=== PATIENT | female | born 1960 | race Caucasian/White ===

== ENCOUNTER → 2016-07-04 | Outpatient (CLI) | payer BC ==
[~2016-07-04] MED LIST: LISI-285 PO; METF-312 PO
[2016-07-04 09:15] LABS: Urine RBC None Seen /hpf (0 - 4)
[2016-07-04 09:28] LABS: Basophils # (auto) 0 uL; Basophils % (auto) 0.3 % (0.0-2.0); Eosinophils # (auto) 0.3 uL; Eosinophils % (auto) 4.1 % (0.0-7.0); Hematocrit 42.7 % (36.0-46.0); Hemoglobin 14.3 g/dL (12.2-16.2); Lymphocytes # (auto) 1.7 uL; Lymphocytes % (auto) 21.4 % (10.0-50.0); Mean Corpuscular Hemoglobin 29.2 pg (28.0-32.0); Mean Corpuscular Hgb Conc. 33.5 g/dL (32.0-36.0); Mean Corpuscular Volume 87.2 fL (80.0-100.0); Mean Platelet Volume 9.5 fL (7.4-10.4); Monocytes # (auto) 0.4 uL; Monocytes % (auto) 5.4 % (0.0-12.0); Neutrophils # (auto) 5.4 uL; Neutrophils % (auto) 68.8 % (37.0-80.0); Platelet Count (auto) 324 10^3/uL (140-450); Red Cell Distribution Width 14.1 % (11.6-16.0); White Blood Cell 7.8 10^3/uL (4.4-10.8)
[2016-07-04 09:37] LABS: Urine Bilirubin Negative (Negative); Urine Blood Negative /uL (Negative); Urine Color Yellow (Yellow); Urine Glucose Normal (Normal); Urine Ketone Negative (Negative); Urine Nitrite Negative (Negative); Urine Squamous Epithelial Cell FEW /hpf (<5); Urine Urobilinogen Normal (Negative)
[2016-07-04 09:46] LABS: Albumin 3.5 g/dL (3.4-5.0); Bilirubin, Total 0.9 mg/dL (0.2-1.0); Calcium 9.2 mg/dL (8.5-10.1); Potassium 3.8 mmol/L (3.5-5.1); Total Protein 7.9 g/dL (6.4-8.2)
== END | disposition home or self-care (01) ==
LOC: LAB 07:45
PROVIDERS: ATTEND Internal Medicine
DX: E11.9 Type 2 diabetes mellitus without complications (principal); Z00.00 Encounter for general adult medical examination without abnormal findings; E78.2 Mixed hyperlipidemia; I10 Essential (primary) hypertension; E55.9 Vitamin D deficiency, unspecified
CPT/HCPCS: 36415; 80053; 80061; 81001; 82043; 82306; 83036; 84443; 85025

== ENCOUNTER → 2017-01-26 | Outpatient (CLI) | payer BC ==
[~2017-01-26] MED LIST changes: -METF-312 PO; +METF-370 PO
[2017-01-26 09:02] LABS: Urine Bilirubin Negative (Negative); Urine Blood Negative /uL (Negative); Urine Color Yellow (Yellow); Urine Glucose Normal (Normal); Urine Ketone Negative (Negative); Urine Nitrite Negative (Negative); Urine Urobilinogen Normal (Negative); Urine pH 5.5 (5.0-8.0)
[2017-01-26 09:19] LABS: BUN/Creatinine Ratio 23.5; Calcium 8.8 mg/dL (8.5-10.1); Potassium 3.9 mmol/L (3.5-5.1)
== END | disposition home or self-care (01) ==
LOC: LAB 07:59
PROVIDERS: ATTEND Internal Medicine
DX: I10 Essential (primary) hypertension (principal); E11.22 Type 2 diabetes mellitus with diabetic chronic kidney disease; E66.01 Morbid (severe) obesity due to excess calories
CPT/HCPCS: 36415; 80048; 81003; 83036

== ENCOUNTER → 2017-04-13 | Outpatient (CLI) | payer BC ==
[2017-04-14 06:06] LABS: Rheumatoid Arthritis Factor <10.0 IU/mL (0.0-13.9)
== END | disposition home or self-care (01) ==
LOC: LAB 08:46
DX: I10 Essential (primary) hypertension (principal); M06.9 Rheumatoid arthritis, unspecified; I70.0 Atherosclerosis of aorta; E78.00 Pure hypercholesterolemia, unspecified; D64.9 Anemia, unspecified; Z79.899 Other long term (current) drug therapy
CPT/HCPCS: 36415; 84550; 85652; 86141; 86200; 86431; 86812

== ENCOUNTER → 2017-06-11 | Outpatient (CLI) | payer BC ==
[2017-06-11 08:47] LABS: Basophils # (auto) 0.1 uL; Basophils % (auto) 0.8 % (0.0-2.0); Eosinophils # (auto) 0.3 uL; Eosinophils % (auto) 4.4 % (0.0-7.0); Hematocrit 39.8 % (36.0-46.0); Lymphocytes # (auto) 1.6 uL; Lymphocytes % (auto) 21.2 % (10.0-50.0); Mean Corpuscular Hemoglobin 29.3 pg (28.0-32.0); Mean Corpuscular Hgb Conc. 32.8 g/dL (32.0-36.0); Mean Corpuscular Volume 89.2 fL (80.0-100.0); Monocytes # (auto) 0.4 uL; Monocytes % (auto) 5.6 % (0.0-12.0); Neutrophils # (auto) 5.2 uL; Platelet Count (auto) 315 10^3/uL (140-450); Red Blood Cells 4.46 10^6/uL (4.0-5.20); Red Cell Distribution Width 14.3 % (11.8-14.3); White Blood Cell 7.7 10^3/uL (4.4-10.8)
[2017-06-11 08:53] LABS: Urine Bacteria NONE SEEN /hpf (None Seen); Urine Blood Negative /uL (Negative); Urine Mucus FEW (None Seen); Urine Specific Gravity 1.025 (1.001-1.035); Urine WBC 2 /hpf (0 - 5)
[2017-06-11 10:30] LABS: Albumin 3.4 g/dL (3.4-5.0); BUN/Creatinine Ratio 18.6; Calcium 8.9 mg/dL (8.5-10.1); Potassium 3.8 mmol/L (3.5-5.1)
[2017-06-11 10:37] LABS: Bilirubin, Total 0.5 mg/dL (0.2-1.0); Total Protein 7.5 g/dL (6.4-8.2)
== END | disposition home or self-care (01) ==
LOC: LAB 08:07
PROVIDERS: ATTEND Physician Assistant
DX: Z00.00 Encounter for general adult medical examination without abnormal findings (principal); I10 Essential (primary) hypertension; E11.9 Type 2 diabetes mellitus without complications; E55.9 Vitamin D deficiency, unspecified; E78.2 Mixed hyperlipidemia; E03.9 Hypothyroidism, unspecified
CPT/HCPCS: 36415; 80053; 80061; 81001; 82043; 82306; 83036; 84443; 85025

== ENCOUNTER 2017-08-24 04:57 | Inpatient (IN) | payer BC ==
[~2017-08-24] VITALS: Ht 165.1 cm; Wt 134.0 kg
[2017-08-24 07:03] LABS: Alanine Aminotransferase 180 U/L (13-56); Albumin 3.2 g/dL (3.4-5.0); Anion Gap 9 (5-15); Aspartate Aminotransferase 262 U/L (15-37); BUN/Creatinine Ratio 18.8; Blood Urea Nitrogen 18 mg/dL (7-18); Calcium 9.1 mg/dL (8.5-10.1); Carbon Dioxide 24 mmol/L (21-32); Chloride 106 mmol/L (98-107); GFR African American 77 mL/min; GFR Non-African American 63 mL/min; Glucose 235 mg/dL (74-106); Lipase 139 U/L (73-393); Magnesium 1.8 mg/dL (1.6-2.6); Sodium 139 mmol/L (136-145)
[2017-08-24 07:05] LABS: Basophils # (auto) 0 uL; Basophils % (auto) 0.5 % (0.0-2.0); Eosinophils # (auto) 0.1 uL; Eosinophils % (auto) 1.9 % (0.0-7.0); Hematocrit 39.8 % (36.0-46.0); Hemoglobin 13.2 g/dL (12.2-16.2); Lymphocytes % (auto) 13.8 % (10.0-50.0); Mean Corpuscular Hemoglobin 29.7 pg (28.0-32.0); Mean Corpuscular Hgb Conc. 33.1 g/dL (32.0-36.0); Mean Corpuscular Volume 89.7 fL (80.0-100.0); Monocytes # (auto) 0.4 uL; Monocytes % (auto) 6.4 % (0.0-12.0); Neutrophils # (auto) 5.4 uL; Neutrophils % (auto) 77.4 % (37.0-80.0); Nucleated Red Blood Cells % 0.1 %; Platelet Count (auto) 294 10^3/uL (140-450); Red Blood Cells 4.44 10^6/uL (4.0-5.20)
[2017-08-24 07:09] LABS: Alkaline Phosphatase 106 U/L (45-117); Bilirubin, Total 1.5 mg/dL (0.2-1.0); Total Protein 7.2 g/dL (6.4-8.2)
[2017-08-24] MEDS ORDERED: PANTOPRAZOLE 40 MG/10 ML VIAL IV STA (07:12)
[2017-08-24] MEDS ORDERED: ONDANSETRON HCL 4 MG/2 ML VIAL IV ONE (07:15)
[2017-08-24 07:39] LABS: Urine Bacteria FEW /hpf (None Seen); Urine Blood Negative /uL (Negative); Urine Budding Yeast OCCASIONAL /hpf (None Seen); Urine Mucus FEW (None Seen); Urine Specific Gravity 1.025 (1.001-1.035); Urine WBC 1 /hpf (0 - 5)
[2017-08-24] MEDS: SODIUM CHLORIDE 0.9% 1,000 ML IV SCH ×2 (11:19→19:39)
[2017-08-24] MEDS ORDERED: ENALAPRILAT 1.25 MG/ML-1ML VIAL IV PRN (11:30)
[2017-08-24] MEDS ORDERED: DEXTROSE (50%) 50ML SYRG IV PRN (11:30)
[2017-08-24] MEDS ORDERED: cefTRIAXone 1GM/10ml IVPUSH 10 ML IV ONE (11:30)
[2017-08-24] MEDS ORDERED: ONDANSETRON HCL 4 MG/2 ML VIAL IV PRN (11:30)
[2017-08-24] MEDS ORDERED: metroNIDAZOLE 500MG/100ML 100 ML IV ONE (11:30)
[2017-08-24] MEDS ORDERED: MORPHINE SULFATE 8mg/ml INJ SDV IV PRN ×3 (11:30→13:00)
[2017-08-24] MEDS ORDERED: NITROGLYCERIN 0.4 MG SL TAB SL PRN (11:30)
[2017-08-24] MEDS ORDERED: HYDROmorphone HCL 2 MG/ML VL ONE (11:47)
[2017-08-24] MEDS ORDERED: fentaNYL CITRATE 100 MCG/2 ML VL ONE (11:47)
[2017-08-24] MEDS ORDERED: MIDAZOLAM HCL 1MG/1ML-2 ML VIAL ONE (11:48)
[2017-08-24] MEDS ORDERED: ONDANSETRON HCL 4 MG/2 ML VIAL ONE (11:48)
[2017-08-24] MEDS ORDERED: PROPOFOL 10 MG/ML 20 ML IV ONE (11:48)
[2017-08-24] MEDS ORDERED: ROCURONIUM 10MG/ML 10ML VIAL IV ONE (11:48)
[2017-08-24] MEDS: InsuLIN REG 1unit/0.01ml Soln (100units/ml) SC SCH ×2 (12:00→18:08)
[2017-08-24] MEDS: ACCU-CHEK COMFORT CURVE STRIP VI SCH ×2 (12:00→18:08)
[2017-08-24] MEDS: Boost Glucose Control 8 Ounces PO SCH ×2 (12:00→18:00)
[2017-08-24 12:12] LABS: INR 0.95 (0.9-1.15); Partial Thromboplastin Time 23.2 sec (22.64-33.71); Prothrombin Time 10.4 sec (9.37-12.3)
[2017-08-24] MEDS ORDERED: ceFAZolin 1GM/50ML 50 ML IV ONE (12:16)
[2017-08-24] MEDS ORDERED: METOCLOPRAMIDE HCL 5MG/ml INJ 2ml VIAL IV ONE (13:00)
[2017-08-24] MEDS ORDERED: KETOROLAC TROMETH 30 MG/ML 1ML VIAL IV ONE (13:00)
[2017-08-24] MEDS ORDERED: ACCU-CHEK COMFORT CURVE STRIP VI ONE (13:00)
[2017-08-24] MEDS ORDERED: GLYCOPYRROLATE 0.2 MG/ML 1ML VIAL ONE (13:54)
[2017-08-24] MEDS ORDERED: KETOROLAC TROMETH 60MG/2ML VIAL IM ONE (13:54)
[2017-08-24] MEDS ORDERED: NEOSTIGMINE 1 MG/ML INJ (10mg/10ML VIAL) ONE (13:54)
[2017-08-24] MEDS ORDERED: LABETALOL HCL 5 MG/ML ML 20ML VIAL IV ONE (14:05)
[2017-08-24 17:00] VITALS: BP 115/63
[2017-08-24] MEDS: metFORMIN HYDROCHLORIDE 500 MG TAB PO SCH (18:08)
[2017-08-24 20:00] VITALS: BP 101/55
[2017-08-24] MEDS: metroNIDAZOLE 500MG/100ML 100 ML IV SCH (20:41)
[2017-08-24 22:00] VITALS: BP 101/55
[2017-08-25] MEDS: ACCU-CHEK COMFORT CURVE STRIP VI SCH ×4 (00:10→17:39)
[2017-08-25] MEDS: InsuLIN REG 1unit/0.01ml Soln (100units/ml) SC SCH ×4 (00:17→17:39)
[2017-08-25] MEDS: SODIUM CHLORIDE 0.9% 1,000 ML IV SCH ×3 (03:59→20:39)
[2017-08-25] MEDS: metroNIDAZOLE 500MG/100ML 100 ML IV SCH ×3 (04:00→18:11)
[2017-08-25 05:00] VITALS: BP 109/54
[2017-08-25 06:27] LABS: Albumin 2.9 g/dL (3.4-5.0); BUN/Creatinine Ratio 15.5; Bilirubin, Total 0.8 mg/dL (0.2-1.0); Calcium 8.4 mg/dL (8.5-10.1); Potassium 4.9 mmol/L (3.5-5.1)
[2017-08-25] MEDS: metFORMIN HYDROCHLORIDE 500 MG TAB PO SCH ×2 (07:00→17:39)
[2017-08-25] MEDS ORDERED: IBUP600T27 PO (07:11)
[2017-08-25] MEDS ORDERED: GABA100C9 PO (07:13)
[2017-08-25 08:03] LABS: Basophils # (auto) 0 uL; Basophils % (auto) 0.1 % (0.0-2.0); Eosinophils # (auto) 0 uL; Hematocrit 38.6 % (36.0-46.0); Hemoglobin 12.5 g/dL (12.2-16.2); Lymphocytes # (auto) 0.6 uL; Lymphocytes % (auto) 5.7 % (10.0-50.0); Mean Corpuscular Hemoglobin 29.1 pg (28.0-32.0); Mean Corpuscular Hgb Conc. 32.4 g/dL (32.0-36.0); Mean Corpuscular Volume 89.8 fL (80.0-100.0); Monocytes # (auto) 0.3 uL; Monocytes % (auto) 3.2 % (0.0-12.0); Neutrophils # (auto) 9.8 uL; Platelet Count (auto) 285 10^3/uL (140-450); Red Cell Distribution Width 15.2 % (11.8-14.3); White Blood Cell 10.8 10^3/uL (4.4-10.8)
[2017-08-25] MEDS: Boost Glucose Control 8 Ounces PO SCH ×3 (08:27→12:24)
[2017-08-25 08:38] VITALS: BP_SYST 11; BP_SYST 111; BP_DIAS 53
[2017-08-25] MEDS: HCTZ 25 MG TAB PO SCH (09:10)
[2017-08-25] MEDS: cefTRIAXone 1GM/10ml IVPUSH 10 ML IV SCH (09:10)
[2017-08-25] MEDS: LISINOPRIL 20 MG TAB PO SCH (09:11)
[2017-08-25 12:43] VITALS: BP 100/46
[2017-08-25 16:57] VITALS: BP 108/56
[2017-08-25 20:05] VITALS: BP 114/58
[2017-08-25 22:13] VITALS: BP 114/58
[2017-08-26] MEDS: ACCU-CHEK COMFORT CURVE STRIP VI SCH ×4 (00:25→18:07)
[2017-08-26] MEDS: InsuLIN REG 1unit/0.01ml Soln (100units/ml) SC SCH ×4 (00:25→18:00)
[2017-08-26] MEDS: metroNIDAZOLE 500MG/100ML 100 ML IV SCH ×3 (04:17→20:30)
[2017-08-26] MEDS: SODIUM CHLORIDE 0.9% 1,000 ML IV SCH ×3 (04:59→21:39)
[2017-08-26 05:20] VITALS: BP 108/67
[2017-08-26] MEDS: metFORMIN HYDROCHLORIDE 500 MG TAB PO SCH ×2 (06:28→18:07)
[2017-08-26 07:10] LABS: Basophils # (auto) 0 uL; Basophils % (auto) 0.5 % (0.0-2.0); Eosinophils # (auto) 0.2 uL; Eosinophils % (auto) 2.5 % (0.0-7.0); Hematocrit 36.2 % (36.0-46.0); Hemoglobin 11.8 g/dL (12.2-16.2); Lymphocytes # (auto) 2.3 uL; Lymphocytes % (auto) 23.7 % (10.0-50.0); Mean Corpuscular Hemoglobin 29.5 pg (28.0-32.0); Mean Corpuscular Hgb Conc. 32.6 g/dL (32.0-36.0); Mean Corpuscular Volume 90.4 fL (80.0-100.0); Monocytes # (auto) 0.5 uL; Monocytes % (auto) 5.5 % (0.0-12.0); Neutrophils # (auto) 6.5 uL; Neutrophils % (auto) 67.8 % (37.0-80.0); Nucleated Red Blood Cells % 0.1 %; Platelet Count (auto) 285 10^3/uL (140-450); Red Cell Distribution Width 15.5 % (11.8-14.3); White Blood Cell 9.6 10^3/uL (4.4-10.8)
[2017-08-26 07:40] LABS: BUN/Creatinine Ratio 18.6; Calcium 8.5 mg/dL (8.5-10.1); Potassium 3.5 mmol/L (3.5-5.1)
[2017-08-26 09:00] VITALS: BP 135/75
[2017-08-26] MEDS: cefTRIAXone 1GM/10ml IVPUSH 10 ML IV SCH (09:46)
[2017-08-26] MEDS: LISINOPRIL 20 MG TAB PO SCH (09:47)
[2017-08-26] MEDS: HCTZ 25 MG TAB PO SCH (09:47)
[2017-08-26] MEDS: Boost Glucose Control 8 Ounces PO SCH ×2 (09:53→18:05)
[2017-08-26 12:33] VITALS: BP 138/62
[2017-08-26 17:00] VITALS: BP 132/65
[2017-08-26 21:46] VITALS: BP 138/69
[2017-08-27] MEDS: metroNIDAZOLE 500MG/100ML 100 ML IV SCH ×2 (04:11→11:30)
[2017-08-27] MEDS: SODIUM CHLORIDE 0.9% 1,000 ML IV SCH ×2 (05:12→14:19)
[2017-08-27 05:18] VITALS: BP 140/75
[2017-08-27] MEDS: InsuLIN REG 1unit/0.01ml Soln (100units/ml) SC SCH ×3 (05:27→11:56)
[2017-08-27] MEDS: ACCU-CHEK COMFORT CURVE STRIP VI SCH ×3 (05:27→12:03)
[2017-08-27] MEDS: metFORMIN HYDROCHLORIDE 500 MG TAB PO SCH (05:28)
[2017-08-27 07:06] LABS: Basophils # (auto) 0.1 uL; Basophils % (auto) 0.8 % (0.0-2.0); Eosinophils # (auto) 0.4 uL; Eosinophils % (auto) 4.5 % (0.0-7.0); Hematocrit 38.5 % (36.0-46.0); Hemoglobin 12.5 g/dL (12.2-16.2); Lymphocytes # (auto) 1.9 uL; Mean Corpuscular Hemoglobin 29.2 pg (28.0-32.0); Mean Corpuscular Hgb Conc. 32.5 g/dL (32.0-36.0); Mean Corpuscular Volume 89.8 fL (80.0-100.0); Monocytes # (auto) 0.5 uL; Monocytes % (auto) 5.7 % (0.0-12.0); Neutrophils # (auto) 5.7 uL; Nucleated Red Blood Cells % 0.1 %; Platelet Count (auto) 306 10^3/uL (140-450); Red Blood Cells 4.28 10^6/uL (4.0-5.20); Red Cell Distribution Width 15.2 % (11.8-14.3); White Blood Cell 8.5 10^3/uL (4.4-10.8)
[2017-08-27 07:21] LABS: BUN/Creatinine Ratio 15.7; Calcium 9.2 mg/dL (8.5-10.1); Potassium 3.9 mmol/L (3.5-5.1)
[2017-08-27 08:20] VITALS: BP 140/75
[2017-08-27 09:05] VITALS: BP 139/76
[2017-08-27] MEDS: cefTRIAXone 1GM/10ml IVPUSH 10 ML IV SCH (09:41)
[2017-08-27] MEDS: HCTZ 25 MG TAB PO SCH (09:41)
[2017-08-27] MEDS: LISINOPRIL 20 MG TAB PO SCH (09:42)
[2017-08-27] MEDS: Boost Glucose Control 8 Ounces PO SCH ×2 (12:00→12:03)
[2017-08-27 13:02] VITALS: BP 132/71
[2017-08-27 14:00] VITALS: BP 132/71
== END 2017-08-27 15:30 | disposition home or self-care (01) | DRG 418 ==
LOC: ER 04:57 → OVERFLOW 04:58 → WEST WING 15:45
PROVIDERS: ADMIT Internal Medicine; ATTEND Internal Medicine
PROC: 0FT44ZZ Resection of Gallbladder, Percutaneous Endoscopic Approach (ICD-10-PCS; principal; 2017-08-24 13:19)
DX: K80.00 Calculus of gallbladder with acute cholecystitis without obstruction (principal); E44.0 Moderate protein-calorie malnutrition; K83.0 Cholangitis; E11.21 Type 2 diabetes mellitus with diabetic nephropathy; R65.10 Systemic inflammatory response syndrome (SIRS) of non-infectious origin without acute organ dysfunction; E11.65 Type 2 diabetes mellitus with hyperglycemia; E66.01 Morbid (severe) obesity due to excess calories; Z68.42 Body mass index [BMI] 45.0-49.9, adult; N39.0 Urinary tract infection, site not specified; K76.0 Fatty (change of) liver, not elsewhere classified; E11.22 Type 2 diabetes mellitus with diabetic chronic kidney disease; R94.5 Abnormal results of liver function studies; I12.9 Hypertensive chronic kidney disease with stage 1 through stage 4 chronic kidney disease, or unspecified chronic kidney disease; N18.2 Chronic kidney disease, stage 2 (mild); Z83.3 Family history of diabetes mellitus; Z79.899 Other long term (current) drug therapy
CPT/HCPCS: 36415; 71046; 76705; 80048; 80053; 81001; 82962; 83036; 83690; 83735; 84484; 85025; 85610; 85730; 86850; 86900; 86901; 87040; 93005; 93306; 96374; 96375; C9113; J0690; J1815; J1885; J2250; J2405; J2704; J3490

== ENCOUNTER → 2018-06-12 | Outpatient (CLI) | payer BC ==
[~2018-06-12] MED LIST changes: +GABA100C9 PO; +IBUP600T27 PO
== END | disposition home or self-care (01) ==
LOC: LAB 08:12
PROVIDERS: ATTEND Physician Assistant
DX: E66.01 Morbid (severe) obesity due to excess calories (principal); Z83.2 Family history of diseases of the blood and blood-forming organs and certain disorders involving the immune mechanism
CPT/HCPCS: 86038; 86431

== ENCOUNTER → 2018-10-07 | Outpatient (CLI) | payer BC ==
[2018-10-07 08:46] LABS: Basophils # (auto) 0 uL; Basophils % (auto) 0.6 % (0.0-2.0); Eosinophils # (auto) 0.3 uL; Eosinophils % (auto) 4.2 % (0.0-7.0); Hemoglobin 13.1 g/dL (12.2-16.2); Lymphocytes # (auto) 1.4 uL; Lymphocytes % (auto) 17.5 % (10.0-50.0); Mean Corpuscular Hemoglobin 29.7 pg (28.0-32.0); Mean Corpuscular Hgb Conc. 32.8 g/dL (32.0-36.0); Mean Corpuscular Volume 90.5 fL (80.0-100.0); Monocytes # (auto) 0.5 uL; Monocytes % (auto) 6.6 % (0.0-12.0); Neutrophils # (auto) 5.7 uL; Neutrophils % (auto) 71.1 % (37.0-80.0); Platelet Count (auto) 308 10^3/uL (140-450); Red Blood Cells 4.42 10^6/uL (4.0-5.20)
[2018-10-07 08:55] LABS: Urine Bacteria FEW /hpf (None Seen); Urine Blood 1+ /uL (Negative); Urine Mucus FEW (None Seen); Urine Specific Gravity 1.023 (1.001-1.035); Urine WBC 119 /hpf (0 - 5)
[2018-10-07 09:12] LABS: Albumin 3.7 g/dL (3.4-5.0); Calcium 9.7 mg/dL (8.5-10.1); Potassium 3.7 mmol/L (3.5-5.1)
[2018-10-07 09:15] LABS: BUN/Creatinine Ratio 25.9; Bilirubin, Total 0.6 mg/dL (0.2-1.0); Total Protein 7.6 g/dL (6.4-8.2)
== END | disposition home or self-care (01) ==
LOC: LAB 08:06
PROVIDERS: ATTEND Physician Assistant
DX: E78.5 Hyperlipidemia, unspecified (principal); I12.9 Hypertensive chronic kidney disease with stage 1 through stage 4 chronic kidney disease, or unspecified chronic kidney disease; E11.22 Type 2 diabetes mellitus with diabetic chronic kidney disease; N18.2 Chronic kidney disease, stage 2 (mild); E66.01 Morbid (severe) obesity due to excess calories
CPT/HCPCS: 36415; 80053; 80061; 81001; 83036; 85025

== ENCOUNTER 2019-02-18 07:40 | Inpatient (IN) | payer BC ==
[2019-02-14 09:45] LABS: Basophils # (auto) 0 uL; Basophils % (auto) 0.6 % (0.0-2.0); Eosinophils # (auto) 0.3 uL; Eosinophils % (auto) 5.5 % (0.0-7.0); Lymphocytes # (auto) 1.5 uL; Mean Corpuscular Hemoglobin 29.7 pg (28.0-32.0); Mean Corpuscular Hgb Conc. 33.2 g/dL (32.0-36.0); Mean Corpuscular Volume 89.4 fL (80.0-100.0); Monocytes # (auto) 0.3 uL; Monocytes % (auto) 5.8 % (0.0-12.0); Neutrophils # (auto) 3.7 uL; Neutrophils % (auto) 62.1 % (37.0-80.0); Platelet Count (auto) 318 10^3/uL (140-450); Red Blood Cells 4.36 10^6/uL (4.0-5.20); Red Cell Distribution Width 14.6 % (11.8-14.3); White Blood Cell 5.9 10^3/uL (4.4-10.8)
[2019-02-14 09:50] LABS: Urine Blood 1+ /uL (Negative); Urine Specific Gravity 1.022 (1.001-1.035)
[2019-02-14 09:53] LABS: Urine Pregnacy Test Negative (Negative)
[2019-02-14 10:02] LABS: INR 0.95 (0.9-1.15); Partial Thromboplastin Time 26.2 sec (23.64-32.05)
[2019-02-14 10:09] LABS: Albumin 3.8 g/dL (3.4-5.0); Calcium 9.2 mg/dL (8.5-10.1); Potassium 4.3 mmol/L (3.5-5.1)
[2019-02-14 10:14] LABS: Bilirubin, Total 0.5 mg/dL (0.2-1.0); Total Protein 7.8 g/dL (6.4-8.2)
[2019-02-14 10:18] LABS: BUN/Creatinine Ratio 27.9
[~2019-02-18] VITALS: Ht 167.6 cm; Wt 114.4 kg
[2019-02-18] MEDS: ceFAZolin 1GM/50ML 50 ML IV SCH (02:45)
[~2019-02-18 07:40] MED LIST changes: +CANA100T OR; +ceFAZolin 1GM/50ML 100 ML IV ONE; +ceFAZolin 1GM/50ML 50 ML IV ONE
[2019-02-18] MEDS ORDERED: LIDOCAINE 1% HCL (LOCAL ANESTH.) INJ 20ML MDV ONE (09:31)
[2019-02-18] MEDS ORDERED: GLYCOPYRROLATE 0.2 MG/ML 1ML VIAL IV ONE (09:49)
[2019-02-18] MEDS ORDERED: KETOROLAC TROMETH 30 MG/ML 1ML VIAL IV ONE (09:49)
[2019-02-18] MEDS ORDERED: MIDAZOLAM HCL 1MG/1ML-2 ML VIAL ONE (09:58)
[2019-02-18] MEDS ORDERED: ROCURONIUM 10MG/ML 10ML VIAL IV ONE (09:58)
[2019-02-18] MEDS ORDERED: fentaNYL CITRATE 5 ML ONE (09:58)
[2019-02-18] MEDS ORDERED: PROPOFOL 10 MG/ML 20 ML IV ONE (10:00)
[2019-02-18] MEDS ORDERED: BUPIVACAINE 0.25% INJ 50ML VIAL ONE (10:33)
[2019-02-18] MEDS ORDERED: HYDROmorphone HCL 2 MG/ML VL ONE ×3 (10:43→14:19)
[2019-02-18] MEDS ORDERED: fentaNYL CITRATE 100 MCG/2 ML VL ONE (11:14)
[2019-02-18] MEDS ORDERED: ePHEDrine SULFATE 50 MG/ML AMP IV PRN (13:30)
[2019-02-18] MEDS ORDERED: HYDROmorphone HCL 2 MG/ML VL IV PRN ×2 (13:30)
[2019-02-18] MEDS ORDERED: hydrALAZINE HCL 20 MG/ML VL IV PRN (13:30)
[2019-02-18] MEDS ORDERED: ONDANSETRON HCL 4 MG/2 ML VIAL IV PRN (13:30)
[2019-02-18] MEDS ORDERED: TEMAZEPAM 15 MG CAP PO PRN (13:45)
[2019-02-18] MEDS ORDERED: ACETAMINOPHEN 325 MG TAB PO PRN (13:45)
[2019-02-18] MEDS: SODIUM CHLOR 0.9% PF (SALINE LOCK) 10ML VIAL/SYR IV SCH ×2 (14:00→22:22)
[2019-02-18] MEDS ORDERED: ONDANSETRON HCL 4 MG/2 ML VIAL ONE (14:20)
[2019-02-18] MEDS: ONDANSETRON HCL 4 MG/2 ML VIAL IV PRN ×2 (14:23→18:58)
[2019-02-18 17:30] VITALS: BP 116/67
--- NOTE | 2019-02-18 17:30 | NUR ---
Admit From OR Patient admitted from OR, lying in bed and shows no signs of distress at this time. Oriented patient to room and unit and call light. Educated patient on pain management, diet and POC. Patient verbalized understanding. Bed in lowest locked position, side rails up x2 and call light within reach. Will continue to monitor.
[2019-02-18 17:40] VITALS: BP 116/67
--- NOTE | 2019-02-18 17:40 | NUR ---
Left Voicemail For CPM Machine Left voicemail with ortho to ask for delivery of patient's CPM machine. Awaiting call back.
--- NOTE | 2019-02-18 19:06 | NUR ---
Closing Note Patient sitting up in bed, states slight nausea. PRM nausea medication given. Care endorsed to NOC nurse.
--- NOTE | 2019-02-18 19:25 | NUR ---
Opening Shift Note Received report from sandy Shukla RN. Assumed care of patient, awake and alert. No S/S of distress/SOB or pain. Instructed on POC and to call for assist PRN, will continue to monitor for changes Q1hr and PRN. Bed placed in lowest position, bed alarm turned on and call light within reach.
[2019-02-18 20:00] VITALS: BP 102/52
[2019-02-18] MEDS: HYDROmorphone HCL 2 MG/ML VL IV PRN (20:01)
[2019-02-18 21:42] VITALS: BP 102/52
[2019-02-18] MEDS: DOCUSATE SOD 100 MG CAP PO SCH ×2 (22:00→22:22)
[2019-02-18] MEDS: oxyCODONE ER 10 MG TAB PO SCH (22:23)
[2019-02-19] MEDS: HYDROmorphone HCL 2 MG/ML VL IV PRN ×5 (01:39→20:09)
--- NOTE | 2019-02-19 01:39 | NUR ---
Patient given dilaudid for pain of 8/10 to left leg. Will monitor
[2019-02-19] MEDS: ceFAZolin 1GM/50ML 50 ML IV SCH ×4 (02:45→14:28)
--- NOTE | 2019-02-19 04:30 | NUR ---
Assisted patient in repositioning left leg for comfort.
[2019-02-19 06:00] VITALS: BP 97/52
[2019-02-19 06:46] LABS: Hematocrit 31.2 % (36.0-46.0); Hemoglobin 10.4 g/dL (12.2-16.2)
[2019-02-19] MEDS: SODIUM CHLOR 0.9% PF (SALINE LOCK) 10ML VIAL/SYR IV SCH ×3 (07:14→21:29)
--- NOTE | 2019-02-19 07:30 | NUR ---
Opening Shift Note Assumed care of patient, awake and alert. No S/S of distress/SOB. c/O PAIN ON LEFT KNEE. Instructed on POC and to call for assist PRN, will continue to monitor for changes Q1hr and PRN.
[2019-02-19 08:00] VITALS: BP 102/52
[2019-02-19 09:00] VITALS: BP 90/53
--- NOTE | 2019-02-19 09:00 | NUR ---
CPM STARTED BY SHEYLA IRONER HAND.
--- NOTE | 2019-02-19 09:00 | NUR ---
INCENTIVE SPIROMETER PROVIDED TO PATIENT I.S. USE AND PURPOSE DISCUSSED WITH PT. PT WAS ABLE TO PROPERLY DEMONSTRATE HOW TO USE I.S. AND WAS ABLE TO REACH 2000 ML ON HER FIRST FEW TRIES. ENCOURAGED PT TO USE IT AT LEAST 10 TIMES EVERY HOUR THAT SHE'S AWAKE. PT VERBALIZED UNDERSTANDING.
--- NOTE | 2019-02-19 09:30 | NUR ---
IV insertion PREVIOUS IV SITE PUFFY AND TENDER. IV DC'd with clean sterile technique, catheter fully intact. Pressure dressing applied to site. Patient tolerated well. NEW IV access obtained, via clean sterile technique by inserting 22 gauge catheter at RIGHT FOREARM after 1 attempt(s). IV secured properly. No trauma to site. Patient tolerated well.
[2019-02-19] MEDS: DOCUSATE SOD 100 MG CAP PO SCH ×2 (09:31→21:29)
[2019-02-19] MEDS: oxyCODONE ER 10 MG TAB PO SCH ×2 (09:31→21:30)
[2019-02-19] MEDS: ENOXAPARIN SOD 40 MG/0.4 ML SYRINGE SC SCH (09:32)
[2019-02-19] MEDS: LACTATED RINGER'S 1,000 ML IV SCH ×2 (09:42→15:18)
[2019-02-19 13:00] VITALS: BP 102/48
--- NOTE | 2019-02-19 13:00 | NUR ---
ACTIVITY PT IS OUT OF BED AND SITTING ON A CHAIR FOR LUNCH. VERBALIZED FEELING OK.
[2019-02-19] MEDS: HYDROcodone-ACET 10/325MG TAB PO PRN (15:10)
[2019-02-19 17:00] VITALS: BP 126/54
--- NOTE | 2019-02-19 17:59 | NUR ---
Rounds Patient awake and alert. No S/S of distress/SOB or pain. Will continue to monitor changes q1hr and PRN.
[2019-02-19 21:00] VITALS: BP 114/61
[2019-02-20] MEDS: HYDROmorphone HCL 2 MG/ML VL IV PRN ×4 (04:40→19:50)
[2019-02-20 04:50] VITALS: BP 121/58
[2019-02-20] MEDS: LACTATED RINGER'S 1,000 ML IV SCH (05:23)
[2019-02-20] MEDS: SODIUM CHLOR 0.9% PF (SALINE LOCK) 10ML VIAL/SYR IV SCH ×3 (05:24→19:50)
[2019-02-20 07:10] LABS: Basophils # (auto) 0 uL; Basophils % (auto) 0.4 % (0.0-2.0); Eosinophils # (auto) 0.1 uL; Eosinophils % (auto) 1.2 % (0.0-7.0); Lymphocytes # (auto) 1.2 uL; Lymphocytes % (auto) 13.4 % (10.0-50.0); Mean Corpuscular Hemoglobin 29.9 pg (28.0-32.0); Mean Corpuscular Hgb Conc. 33.3 g/dL (32.0-36.0); Mean Corpuscular Volume 89.9 fL (80.0-100.0); Monocytes # (auto) 0.8 uL; Monocytes % (auto) 8.6 % (0.0-12.0); Neutrophils % (auto) 76.4 % (37.0-80.0); Platelet Count (auto) 249 10^3/uL (140-450); Red Blood Cells 3.33 10^6/uL (4.0-5.20); Red Cell Distribution Width 14.3 % (11.8-14.3); White Blood Cell 9.2 10^3/uL (4.4-10.8)
[2019-02-20 07:26] LABS: Calcium 8.8 mg/dL (8.5-10.1); Potassium 4.1 mmol/L (3.5-5.1)
[2019-02-20 09:00] VITALS: BP 120/66
[2019-02-20] MEDS: DOCUSATE SOD 100 MG CAP PO SCH ×2 (09:07→23:05)
[2019-02-20] MEDS: oxyCODONE ER 10 MG TAB PO SCH ×2 (09:07→23:05)
[2019-02-20] MEDS: ENOXAPARIN SOD 40 MG/0.4 ML SYRINGE SC SCH (09:08)
--- NOTE | 2019-02-20 12:00 | NUR ---
MOREL CATHETER REMOVED PATIENT TOLERATED WELL. PATIENT WAS ABLE TO URINATE ONCE MOREL WAS DISCONTINUED
[2019-02-20 13:00] VITALS: BP 142/76
--- NOTE | 2019-02-20 15:29 | NUR ---
assessment Patient is a 58 year old female who is alert and oriented. Patients cognitive abilities are intact. Prior to admission patient lived home with her Dusty and functioned independently. Patient informed me she is able to care for her own ADLs. Per patient she will return home to her prior living arrangements post discharge and family will transport her home. Patient has been admitted for total knee replacement. Patient has a cane for home use. Patient will need a fww, CPM and physical therapy on discharge. I will follow up with patient in the morning. Patient informed me he PCP is Carolee Farris. I informed patient she has a right to speak to a social science professor regarding all care. I informed patient she has a right to participate in any and all discharge planning. Patient does not have a POA and advanced directive. I have offered patient information on POA and advanced directives. I informed the patient the advantages and benefits of having an Advanced Directive. Patient verbalized understanding and agreed to discharge plan. Addendum: 02/20/19 at 1538 by Jessica NGUYEN Amended: Links added.
[2019-02-20 17:00] VITALS: BP 132/67
[2019-02-20 22:00] VITALS: BP 134/66
[2019-02-21] MEDS: LACTATED RINGER'S 1,000 ML IV SCH ×2 (01:42→02:47)
[2019-02-21] MEDS: HYDROcodone-ACET 10/325MG TAB PO PRN ×2 (03:20→11:08)
[2019-02-21] MEDS: SODIUM CHLOR 0.9% PF (SALINE LOCK) 10ML VIAL/SYR IV SCH ×2 (05:29→14:00)
[2019-02-21 05:37] VITALS: BP 110/60
[2019-02-21 05:39] LABS: Hematocrit 28.8 % (36.0-46.0); Hemoglobin 9.9 g/dL (12.2-16.2)
[2019-02-21 09:00] VITALS: BP_SYST 122; BP_DIAS 62; BP_DIAS 66
[2019-02-21] MEDS: ENOXAPARIN SOD 40 MG/0.4 ML SYRINGE SC SCH (09:10)
[2019-02-21] MEDS: DOCUSATE SOD 100 MG CAP PO SCH (09:10)
[2019-02-21] MEDS: oxyCODONE ER 10 MG TAB PO SCH (09:11)
[2019-02-21 13:00] VITALS: BP 132/69
[2019-02-21] MEDS: HYDROmorphone HCL 2 MG/ML VL IV PRN (16:15)
--- NOTE | 2019-02-21 16:32 | NUR ---
Discharge planning per consult ,patient has orders to dc home with a FWW, a CPM machine, and out patient physical therapy. Referral was faxed to [facility], placed a follow up call, spoke with Katherine and was advised that patient was approved for the FWW and that DME request and auth was sent to [facility], and that the order was sent with auth to [facility] out patient PT who will follow up with the patient to schedule a day and time to begin services. Obtained auth for [facility] [id number]. Placed a follow up call to [facility], spoke with Jose and was asked for a physical address for the patient. Encountered patient, she provided the following address: [id number] [place] [address];address provided to [facility] rep. She advised that they will deliver the FWW to bedside between 5-7pm. Nurse Swati and patient were advised of dc plan. Addendum: 02/21/19 at 1648 by MARTHA NGUYEN Amended: Links added. Addendum: 02/21/19 at 1709 by MARTHA BAER SS CPM was previously ordered through the PT dept, obtained auth [id number], and it was at bedside; [facility] was faxed the referral and auth for replacement CPM. Auth obtained for the outpatient PT with [facility]-[id number].
[2019-02-21 17:00] VITALS: BP 124/72
--- NOTE | 2019-02-21 18:00 | NUR ---
DISCHARGE NOTE PATIENT ALERT AND ORIENTED X4. ALL DISCHARGE INSTRUCTIONS GIVEN ALL QUESTIONS CONCERNS ADDRESSED. DRESSING TO LEFT KNEE DRY AND INTACT. ROCKY INTACT. PULSES PALPABLE BILATERALLY. FRONT WHEEL WALKER PROVIDED BY [facility] AT BEDSIDE AND GIVEN TO PATIENT. PATIENT STATED SHE OBTAINED A CPM MACHINE ALREADY AND IS CURRENTLY AT HER HOME. PATIENT EDUCTED AND AWARE SHE WILL BE ATTENDING PHYSICAL THERAPY OUTPATIENT. PATIENT VERBALIZED UNDERSTANDING. IV REMOVED USING ASEPTIC TECHNIQUE CATHETER INTACT PRESSURE DRESSING APPLIED PATIENT TOLERATED WELL. PATIENT ASSISTED TO PERSONAL VEHICLE USING A WHEELCHAIR. PATIENT DENIES ANY SOB OR DISTRESS.
== END 2019-02-21 18:00 | disposition home health service (06) | DRG 470 ==
LOC: SUR 07:40 → EAST 17:39
PROVIDERS: ADMIT Orthopaedic Surgery; ATTEND Internal Medicine
PROC: 0QTF0ZZ Resection of Left Patella, Open Approach (ICD-10-PCS; 2019-02-18)
PROC: 0KNR0ZZ Release Left Upper Leg Muscle, Open Approach (ICD-10-PCS; 2019-02-18)
PROC: 0SRC0J9 Replacement of Right Knee Joint with Synthetic Substitute, Cemented, Open Approach (ICD-10-PCS; principal; 2019-02-18 09:49)
DX: M17.12 Unilateral primary osteoarthritis, left knee (principal); N39.0 Urinary tract infection, site not specified; Z68.41 Body mass index [BMI] 40.0-44.9, adult; E11.9 Type 2 diabetes mellitus without complications; E66.01 Morbid (severe) obesity due to excess calories; I10 Essential (primary) hypertension; M70.42 Prepatellar bursitis, left knee; Y93.89 Activity, other specified; Z90.49 Acquired absence of other specified parts of digestive tract; Z90.710 Acquired absence of both cervix and uterus
CPT/HCPCS: 36415; 73560; 80048; 80053; 81003; 81025; 82962; 83036; 84702; 85014; 85018; 85025; 85610; 85730; 86850; 86900; 86901; 97116; 97163; 97530; G0378; J0690; J1885; J2001; J2250; J2405; J2704; J3490

== ENCOUNTER → 2019-07-01 | Outpatient (CLI) | payer BC ==
[~2019-07-01] MED LIST changes: -ceFAZolin 1GM/50ML 100 ML IV ONE; -ceFAZolin 1GM/50ML 50 ML IV ONE
[2019-07-01 10:58] LABS: Basophils # (auto) 0 uL; Basophils % (auto) 0.7 % (0.0-2.0); Eosinophils # (auto) 0.4 uL; Eosinophils % (auto) 5.3 % (0.0-7.0); Hematocrit 38.9 % (36.0-46.0); Hemoglobin 12.8 g/dL (12.2-16.2); Lymphocytes # (auto) 1.3 uL; Lymphocytes % (auto) 19.3 % (10.0-50.0); Mean Corpuscular Hemoglobin 28.4 pg (28.0-32.0); Mean Corpuscular Hgb Conc. 32.8 g/dL (32.0-36.0); Mean Corpuscular Volume 86.4 fL (80.0-100.0); Monocytes # (auto) 0.4 uL; Monocytes % (auto) 5.5 % (0.0-12.0); Neutrophils # (auto) 4.6 uL; Neutrophils % (auto) 69.2 % (37.0-80.0); Platelet Count (auto) 328 10^3/uL (140-450); Red Cell Distribution Width 15.2 % (11.8-14.3); White Blood Cell 6.6 10^3/uL (4.4-10.8)
[2019-07-01 11:07] LABS: Urine Bacteria FEW /hpf (None Seen); Urine Blood Negative /uL (Negative); Urine Specific Gravity 1.015 (1.001-1.035); Urine WBC 15 /hpf (0 - 5)
[2019-07-01 11:09] LABS: Albumin 3.4 g/dL (3.4-5.0); Calcium 9.4 mg/dL (8.5-10.1); Potassium 4.2 mmol/L (3.5-5.1)
[2019-07-01 11:14] LABS: BUN/Creatinine Ratio 24.8; Bilirubin, Total 0.5 mg/dL (0.2-1.0); Total Protein 7.5 g/dL (6.4-8.2)
== END | disposition home or self-care (01) ==
LOC: LAB 10:33
PROVIDERS: ATTEND Physician Assistant
DX: E11.22 Type 2 diabetes mellitus with diabetic chronic kidney disease (principal); N18.2 Chronic kidney disease, stage 2 (mild); E78.5 Hyperlipidemia, unspecified; E55.9 Vitamin D deficiency, unspecified; N30.01 Acute cystitis with hematuria
CPT/HCPCS: 36415; 80053; 80061; 81001; 83036; 85025

== ENCOUNTER → 2020-01-09 | Outpatient (CLI) | payer BC | END | disposition home or self-care (01) | LOC: LAB 08:34 | PROVIDERS: ATTEND Physician Assistant | DX: Z00.00 Encounter for general adult medical examination without abnormal findings (principal) | CPT/HCPCS: 82274 ==

== ENCOUNTER → 2020-03-26 | Outpatient (CLI) | payer OTHER | END | disposition home or self-care (01) | LOC: LAB 13:01 | PROVIDERS: ATTEND Nurse Practitioner Family | DX: U07.1 COVID-19 (principal) | CPT/HCPCS: C9803; U0003 ==

== ENCOUNTER → 2020-07-15 | Outpatient (CLI) | payer BC ==
[2020-07-15 09:16] LABS: Basophils # (auto) 0 10 ^3/uL (0-0.2); Basophils % (auto) 0.5 % (0.0-2.0); Eosinophils # (auto) 0.3 10 ^3/uL (0-0.8); Eosinophils % (auto) 5.2 % (0.0-7.0); Hematocrit 38.4 % (36.0-46.0); Hemoglobin 12.8 g/dL (12.2-16.2); Lymphocytes # (auto) 1.4 10 ^3/uL (0.4-5.4); Lymphocytes % (auto) 26.6 % (10.0-50.0); Mean Corpuscular Hemoglobin 29.9 pg (28.0-32.0); Mean Corpuscular Hgb Conc. 33.4 g/dL (32.0-36.0); Mean Corpuscular Volume 89.5 fL (80.0-100.0); Monocytes # (auto) 0.3 10 ^3/uL (0-1.3); Monocytes % (auto) 6.1 % (0.0-12.0); Neutrophils # (auto) 3.2 10 ^3/uL (1.6-8.6); Neutrophils % (auto) 61.6 % (37.0-80.0); Nucleated Red Blood Cells % 0.1 %; Platelet Count (auto) 294 10^3/uL (140-450); Red Blood Cells 4.29 10^6/uL (4.0-5.20); Red Cell Distribution Width 15.8 % (11.8-14.3); White Blood Cell 5.2 10^3/uL (4.4-10.8)
[2020-07-15 10:12] LABS: Albumin 3.4 g/dL (3.4-5.0); Calcium 9.4 mg/dL (8.5-10.1); Potassium 4.3 mmol/L (3.5-5.1)
[2020-07-15 10:17] LABS: BUN/Creatinine Ratio 25.2; Bilirubin, Total 0.3 mg/dL (0.2-1.0); Total Protein 7.6 g/dL (6.4-8.2)
== END | disposition home or self-care (01) ==
LOC: LAB 08:44
PROVIDERS: ATTEND Physician Assistant
DX: I12.9 Hypertensive chronic kidney disease with stage 1 through stage 4 chronic kidney disease, or unspecified chronic kidney disease (principal); E11.22 Type 2 diabetes mellitus with diabetic chronic kidney disease; N18.2 Chronic kidney disease, stage 2 (mild); E78.5 Hyperlipidemia, unspecified; E55.9 Vitamin D deficiency, unspecified
CPT/HCPCS: 36415; 80053; 80061; 82043; 82306; 83036; 85025

== ENCOUNTER 2020-10-11 06:16 | Inpatient (IN) | payer BC ==
[2020-10-07 09:50] LABS: Basophils # (auto) 0 10 ^3/uL (0-0.2); Basophils % (auto) 0.6 % (0.0-2.0); Eosinophils # (auto) 0.3 10 ^3/uL (0-0.8); Eosinophils % (auto) 3.9 % (0.0-7.0); Hematocrit 40.9 % (36.0-46.0); Hemoglobin 13.5 g/dL (12.2-16.2); Lymphocytes # (auto) 1.6 10 ^3/uL (0.4-5.4); Lymphocytes % (auto) 22.4 % (10.0-50.0); Mean Corpuscular Hemoglobin 29.9 pg (28.0-32.0); Mean Corpuscular Volume 90.5 fL (80.0-100.0); Monocytes # (auto) 0.5 10 ^3/uL (0-1.3); Neutrophils # (auto) 4.8 10 ^3/uL (1.6-8.6); Neutrophils % (auto) 66.1 % (37.0-80.0); Nucleated Red Blood Cells % 0.1 %; Platelet Count (auto) 341 10^3/uL (140-450); Red Blood Cells 4.52 10^6/uL (4.0-5.20); Red Cell Distribution Width 14.5 % (11.8-14.3); White Blood Cell 7.2 10^3/uL (4.4-10.8)
[2020-10-07 10:05] LABS: INR 0.98 (0.9-1.15); Partial Thromboplastin Time 25.9 sec (23.0-31.2)
[2020-10-07 10:09] LABS: Albumin 3.7 g/dL (3.4-5.0); Calcium 9.5 mg/dL (8.5-10.1); Potassium 4.4 mmol/L (3.5-5.1)
[2020-10-07 10:12] LABS: Bilirubin, Total 0.6 mg/dL (0.2-1.0)
[2020-10-11] VITALS (12 sets, daily range): BP systolic 100–127; BP diastolic 51–71
[~2020-10-11] VITALS: Ht 165.1 cm; Wt 127.5 kg
[~2020-10-11 06:16] MED LIST changes: -GABA100C9 PO; -IBUP600T27 PO
[2020-10-11] MEDS ORDERED: ACETAMINOPHEN IV 1000 MG/100ML (10MG/ML) IV ONE (06:45)
[2020-10-11] MEDS ORDERED: PREGABALIN CAPSULE 75 MG CAP PO ONE (06:45)
[2020-10-11] MEDS ORDERED: CELECOXIB 100 MG CAP PO ONE (06:45)
[2020-10-11] MEDS ORDERED: ceFAZolin 1GM/50ML 100 ML IV ONE (07:01)
[2020-10-11] MEDS ORDERED: CELECOXIB 100 MG CAP ONE (07:02)
[2020-10-11] MEDS ORDERED: ACETAMINOPHEN IV 100 ML IV ONE (07:02)
[2020-10-11] MEDS ORDERED: ROPIVACAINE 0.5% (5MG/ML) 20ML AMPULE IJ ONE (07:09)
[2020-10-11] MEDS ORDERED: FAMOTIDINE (10MG/ML) 2ML VL IV ONE (07:10)
[2020-10-11] MEDS ORDERED: PREGABALIN CAPSULE 75 MG CAP ONE (07:10)
[2020-10-11] MEDS ORDERED: BUPIVACAINE 0.25% INJ 50ML VIAL ONE (07:12)
[2020-10-11] MEDS ORDERED: TRANEXAMIC ACID 20 ML ONE (07:12)
[2020-10-11] MEDS ORDERED: KETOROLAC TROMETH 30 MG/ML 1ML VIAL ONE ×2 (07:16→07:19)
[2020-10-11] MEDS ORDERED: VANCOMYCIN HCL 1000 MG VL ONE (07:16)
[2020-10-11] MEDS ORDERED: fentaNYL CITRATE 100 MCG/2 ML VL ONE (07:18)
[2020-10-11] MEDS ORDERED: KETAMINE HCL 10 ML ONE (07:18)
[2020-10-11] MEDS ORDERED: MORPHINE SULF(PF) 0.5MG/ML 10ML VIAL ONE (07:18)
[2020-10-11] MEDS ORDERED: GLYCOPYRROLATE 0.2 MG/ML 1ML VIAL ONE (07:19)
[2020-10-11] MEDS ORDERED: PROPOFOL 10 MG/ML 20 ML IV ONE (07:19)
[2020-10-11] MEDS ORDERED: DexAMETHasone SOD PHOS 10MG/1ML VIAL INJ ONE (07:19)
[2020-10-11] MEDS ORDERED: LIDOCAINE 2% (LOCAL ANESTH.) PF 5ml SDV ONE (07:19)
[2020-10-11] MEDS ORDERED: MIDAZOLAM HCL 1MG/1ML-2 ML VIAL ONE ×2 (07:19→08:21)
[2020-10-11] MEDS ORDERED: ONDANSETRON HCL 4 MG/2 ML VIAL ONE (07:19)
[2020-10-11] MEDS ORDERED: ePHEDrine SULFATE 50 MG/ML AMP ONE (07:19)
[2020-10-11] MEDS ORDERED: TETRACAINE 1% INJ 2 ML VIAL IJ ONE (07:47)
[2020-10-11] MEDS ORDERED: LISINOPRIL PO SCH (10:00)
[2020-10-11] MEDS ORDERED: HYDROmorphone HCL 2 MG/ML VL IV PRN (10:00)
[2020-10-11] MEDS ORDERED: BISACODYL 5 MG EC TAB PO PRN (10:00)
[2020-10-11] MEDS ORDERED: metFORMIN HYDROCHLORIDE 500 MG TAB PO SCH (10:00)
[2020-10-11] MEDS ORDERED: HYDROCHLOROTHIAZIDE PO SCH (10:00)
[2020-10-11] MEDS ORDERED: ONDANSETRON HCL 4 MG/2 ML VIAL IV PRN ×4 (10:00→13:15)
[2020-10-11] MEDS ORDERED: OXYCODONE W/ ACETAMINOPHEN 5/325MG TABLET PO PRN (10:00)
[2020-10-11] MEDS ORDERED: ACETAMINOPHEN 325 MG TAB PO PRN (10:00)
[2020-10-11] MEDS ORDERED: DexAMETHasone SOD PHOS 10MG/1ML VIAL INJ IV PRN (10:15)
[2020-10-11] MEDS ORDERED: diphenhdrAMINE HCL 50 MG/1 ML VL IV PRN (10:15)
[2020-10-11] MEDS ORDERED: KETOROLAC TROMETH 30 MG/ML 1ML VIAL IV PRN (10:15)
[2020-10-11] MEDS ORDERED: NITROGLYCERIN 0.4 MG SL TAB SL PRN (11:00)
[2020-10-11] MEDS ORDERED: MORPHINE SULF INJ 2 MG/ML SYRINGE 1ML IV PRN (11:00)
[2020-10-11] MEDS: LACTATED RINGER'S 1,000 ML IV SCH ×2 (14:02→20:55)
[2020-10-11] MEDS: ceFAZolin 1GM 2 GM in D5W 5% 100 ML IV SCH ×2 (14:03→22:50)
[2020-10-11] MEDS: SODIUM CHLOR 0.9% PF (SALINE LOCK) 10ML VIAL/SYR IV SCH ×2 (14:03→21:14)
[2020-10-11] MEDS: DOCUSATE SOD 100 MG CAP PO SCH ×2 (21:14→22:00)
[2020-10-12] VITALS (26 sets, daily range): BP systolic 73–126; BP diastolic 34–68
[2020-10-12] MEDS ORDERED: ALBUMIN 5% 250 ML IV ONE (05:15)
[2020-10-12 05:45] LABS: Basophils # (auto) 0 10 ^3/uL (0-0.2); Basophils % (auto) 0.1 % (0.0-2.0); Eosinophils # (auto) 0 10 ^3/uL (0-0.8); Hematocrit 34.6 % (36.0-46.0); Hemoglobin 11.4 g/dL (12.2-16.2); Lymphocytes # (auto) 0.8 10 ^3/uL (0.4-5.4); Lymphocytes % (auto) 7.7 % (10.0-50.0); Mean Corpuscular Hemoglobin 30.4 pg (28.0-32.0); Mean Corpuscular Hgb Conc. 33.1 g/dL (32.0-36.0); Mean Corpuscular Volume 91.7 fL (80.0-100.0); Monocytes # (auto) 0.5 10 ^3/uL (0-1.3); Monocytes % (auto) 5.3 % (0.0-12.0); Neutrophils # (auto) 8.8 10 ^3/uL (1.6-8.6); Neutrophils % (auto) 86.9 % (37.0-80.0); Platelet Count (auto) 269 10^3/uL (140-450); Red Blood Cells 3.77 10^6/uL (4.0-5.20); Red Cell Distribution Width 14.1 % (11.8-14.3); White Blood Cell 10.1 10^3/uL (4.4-10.8)
[2020-10-12 06:13] LABS: Albumin 2.9 g/dL (3.4-5.0); Calcium 8.6 mg/dL (8.5-10.1)
[2020-10-12 06:15] LABS: BUN/Creatinine Ratio 21.3
[2020-10-12 06:17] LABS: Bilirubin, Total 0.3 mg/dL (0.2-1.0); Total Protein 6.3 g/dL (6.4-8.2)
[2020-10-12] MEDS: SODIUM CHLOR 0.9% PF (SALINE LOCK) 10ML VIAL/SYR IV SCH ×3 (06:28→21:53)
[2020-10-12] MEDS: LACTATED RINGER'S 1,000 ML IV SCH ×2 (06:42→16:00)
[2020-10-12] MEDS: ceFAZolin 1GM 2 GM in D5W 5% 100 ML IV SCH (07:10)
[2020-10-12] MEDS: DOCUSATE SOD 100 MG CAP PO SCH ×2 (10:31→21:52)
[2020-10-12] MEDS: ENOXAPARIN SOD 40 MG/0.4 ML SYRINGE SC SCH (10:31)
[2020-10-12] MEDS ORDERED: SODIUM CHLORIDE 0.9% 500 ML IV ONE (11:15)
[2020-10-12] MEDS ORDERED: DEXTROSE (50%) 50ML SYRG IV PRN (12:00)
[2020-10-12] MEDS: InsuLIN REG 1unit/0.01ml Soln (100units/ml) SC SCH ×2 (12:00→18:00)
[2020-10-12] MEDS: ACCU-CHEK COMFORT CURVE STRIP VI SCH ×2 (12:26→18:20)
[2020-10-12] MEDS: OXYCODONE W/ ACETAMINOPHEN 5/325MG TABLET PO PRN ×2 (12:50→21:52)
[2020-10-13] VITALS (7 sets, daily range): BP systolic 123–139; BP diastolic 60–78
[2020-10-13] MEDS: LACTATED RINGER'S 1,000 ML IV SCH ×2 (01:30→12:35)
[2020-10-13] MEDS: OXYCODONE W/ ACETAMINOPHEN 5/325MG TABLET PO PRN ×2 (03:02→14:57)
[2020-10-13] MEDS: SODIUM CHLOR 0.9% PF (SALINE LOCK) 10ML VIAL/SYR IV SCH (05:06)
[2020-10-13] MEDS: ACCU-CHEK COMFORT CURVE STRIP VI SCH ×3 (05:07→12:36)
[2020-10-13] MEDS: InsuLIN REG 1unit/0.01ml Soln (100units/ml) SC SCH ×3 (05:07→12:00)
[2020-10-13 05:59] LABS: Basophils # (auto) 0 10 ^3/uL (0-0.2); Basophils % (auto) 0.3 % (0.0-2.0); Eosinophils # (auto) 0.2 10 ^3/uL (0-0.8); Eosinophils % (auto) 2.8 % (0.0-7.0); Hematocrit 32.2 % (36.0-46.0); Hemoglobin 10.8 g/dL (12.2-16.2); Lymphocytes # (auto) 0.8 10 ^3/uL (0.4-5.4); Lymphocytes % (auto) 9.3 % (10.0-50.0); Mean Corpuscular Hemoglobin 30.6 pg (28.0-32.0); Mean Corpuscular Hgb Conc. 33.6 g/dL (32.0-36.0); Mean Corpuscular Volume 90.9 fL (80.0-100.0); Monocytes # (auto) 0.5 10 ^3/uL (0-1.3); Monocytes % (auto) 6.1 % (0.0-12.0); Neutrophils # (auto) 6.9 10 ^3/uL (1.6-8.6); Neutrophils % (auto) 81.5 % (37.0-80.0); Nucleated Red Blood Cells % 0.1 %; Platelet Count (auto) 232 10^3/uL (140-450); Red Blood Cells 3.54 10^6/uL (4.0-5.20); Red Cell Distribution Width 14.2 % (11.8-14.3); White Blood Cell 8.5 10^3/uL (4.4-10.8)
[2020-10-13 06:30] LABS: BUN/Creatinine Ratio 25.7; Calcium 8.2 mg/dL (8.5-10.1); Potassium 4.3 mmol/L (3.5-5.1)
[2020-10-13] MEDS: DOCUSATE SOD 100 MG CAP PO SCH (09:23)
[2020-10-13] MEDS: ENOXAPARIN SOD 40 MG/0.4 ML SYRINGE SC SCH (09:23)
[2020-10-13] MEDS ORDERED: HYDROmorphone HCL 2 MG/ML VL IV PRN (14:15)
[2020-10-13] MEDS ORDERED: LACTATED RINGER'S 1,000 ML IV SCH (14:30)
== END 2020-10-13 16:40 | disposition home or self-care (01) | DRG 469 ==
LOC: SUR 06:16 → TELE 10:57 → TELE-WESTW 12:09
PROVIDERS: ADMIT Orthopaedic Surgery Adult Reconstructive Orthopaedic Surgery; ATTEND Internal Medicine
PROC: 3E0T3BZ Introduction of Anesthetic Agent into Peripheral Nerves and Plexi, Percutaneous Approach (ICD-10-PCS; 2020-10-11)
PROC: 8E0YXBZ Computer Assisted Procedure of Lower Extremity (ICD-10-PCS; 2020-10-11)
PROC: 0SRC0J9 Replacement of Right Knee Joint with Synthetic Substitute, Cemented, Open Approach (ICD-10-PCS; principal; 2020-10-11 07:31)
DX: M17.11 Unilateral primary osteoarthritis, right knee (principal); N17.0 Acute kidney failure with tubular necrosis; Z68.42 Body mass index [BMI] 45.0-49.9, adult; E11.22 Type 2 diabetes mellitus with diabetic chronic kidney disease; E66.01 Morbid (severe) obesity due to excess calories; I12.9 Hypertensive chronic kidney disease with stage 1 through stage 4 chronic kidney disease, or unspecified chronic kidney disease; N18.9 Chronic kidney disease, unspecified; I95.9 Hypotension, unspecified; R42 Dizziness and giddiness
CPT/HCPCS: 36415; 73562; 80048; 80053; 82962; 83036; 85025; 85610; 85730; 86850; 86900; 86901; 97110; 97116; 97163; 97530; G0378; J0131; J0690; J1100; J1885; J2001; J2250; J2405; J2704; J3490; J7060

== ENCOUNTER 2020-11-25 06:48 | Day surgery (SDC) | payer BC ==
[2020-11-23 15:29] LABS: Urine Bacteria NONE SEEN /hpf (None Seen); Urine Blood Negative /uL (Negative); Urine Specific Gravity 1.031 (1.001-1.035); Urine WBC 13 /hpf (0 - 5)
[2020-11-23 15:31] LABS: Basophils # (auto) 0 10 ^3/uL (0-0.2); Basophils % (auto) 0.6 % (0.0-2.0); Eosinophils # (auto) 0.3 10 ^3/uL (0-0.8); Hematocrit 38.2 % (36.0-46.0); Hemoglobin 11.8 g/dL (12.2-16.2); Lymphocytes # (auto) 1.3 10 ^3/uL (0.4-5.4); Mean Corpuscular Hemoglobin 27.5 pg (28.0-32.0); Mean Corpuscular Hgb Conc. 30.8 g/dL (32.0-36.0); Mean Corpuscular Volume 89.3 fL (80.0-100.0); Monocytes # (auto) 0.4 10 ^3/uL (0-1.3); Monocytes % (auto) 6.8 % (0.0-12.0); Neutrophils # (auto) 4.4 10 ^3/uL (1.6-8.6); Neutrophils % (auto) 67.6 % (37.0-80.0); Nucleated Red Blood Cells % 0.1 %; Red Blood Cells 4.28 10^6/uL (4.0-5.20); Red Cell Distribution Width 15.4 % (11.8-14.3); White Blood Cell 6.5 10^3/uL (4.4-10.8)
[2020-11-23 16:11] LABS: Albumin 3.2 g/dL (3.4-5.0); Calcium 9.5 mg/dL (8.5-10.1); Potassium 4.1 mmol/L (3.5-5.1)
[2020-11-23 16:14] LABS: BUN/Creatinine Ratio 17.5; Bilirubin, Total 0.3 mg/dL (0.2-1.0)
[~2020-11-25] VITALS: Ht 165.1 cm; Wt 110.2 kg
[~2020-11-25 06:48] MED LIST changes: +ACET650S12 PO; -LISI-285 PO
[2020-11-25] MEDS ORDERED: CELECOXIB 100 MG CAP ONE (07:28)
[2020-11-25] MEDS ORDERED: ACETAMINOPHEN IV 0 ML IV ONE (07:29)
[2020-11-25] MEDS ORDERED: PREGABALIN CAPSULE 75 MG CAP ONE (07:29)
[2020-11-25] MEDS ORDERED: ceFAZolin 1GM/50ML 100 ML IV ONE (07:29)
[2020-11-25] MEDS ORDERED: ONDANSETRON HCL 4 MG/2 ML VIAL ONE (08:08)
[2020-11-25] MEDS ORDERED: MIDAZOLAM HCL 2MG/2ML 2ml VIAL (1mg/ml) ONE (08:08)
[2020-11-25] MEDS ORDERED: KETOROLAC TROMETH 30 MG/ML 1ML VIAL ONE (08:08)
[2020-11-25] MEDS ORDERED: GLYCOPYRROLATE 0.2 MG/ML 1ML VIAL ONE (08:08)
[2020-11-25] MEDS ORDERED: PROPOFOL 10 MG/ML 20 ML IV ONE (08:08)
[2020-11-25] MEDS ORDERED: methylPREDNISolone ACETATE 80 MG/ML VL ONE (08:11)
[2020-11-25] MEDS ORDERED: KETAMINE 50mg/ML 10ml Vial (500mg/10ml) IV ONE (08:41)
[2020-11-25] MEDS ORDERED: LIDOCAINE W/ EPINEPHRINE 1% 20ML VIAL ONE (09:02)
[2020-11-25] MEDS: HYDROmorphone HCL 2 MG/ML VL IV PRN ×3 (09:03→09:23)
[2020-11-25] MEDS ORDERED: HYDROmorphone HCL 2 MG/ML VL ONE (09:03)
[2020-11-25] MEDS ORDERED: ONDANSETRON HCL 4 MG/2 ML VIAL IV PRN (09:15)
[2020-11-25 09:45] VITALS: BP 115/64
== END 2020-11-25 09:55 | disposition home or self-care (01) ==
LOC: SUR 06:48
PROVIDERS: ATTEND Orthopaedic Surgery Adult Reconstructive Orthopaedic Surgery
DX: T84.82XA Fibrosis due to internal orthopedic prosthetic devices, implants and grafts, initial encounter (principal); M24.661 Ankylosis, right knee; I10 Essential (primary) hypertension; E11.9 Type 2 diabetes mellitus without complications; Z20.822 Contact with and (suspected) exposure to COVID-19; Z98.890 Other specified postprocedural states; Z79.899 Other long term (current) drug therapy; Z68.41 Body mass index [BMI] 40.0-44.9, adult; Z80.8 Family history of malignant neoplasm of other organs or systems; X58.XXXA Exposure to other specified factors, initial encounter; Y93.89 Activity, other specified
CPT/HCPCS: 27570; 36415; 80053; 81001; 82962; 85025; J0690; J1170; J1885; J2250; J2405; J2704; U0003; J0131

== ENCOUNTER → 2021-08-02 | Outpatient (CLI) | payer BC ==
[2021-08-02 09:11] LABS: Basophils # (auto) 0 10 ^3/uL (0-0.2); Basophils % (auto) 0.6 % (0.0-2.0); Eosinophils # (auto) 0.2 10 ^3/uL (0-0.8); Eosinophils % (auto) 2.9 % (0.0-7.0); Hematocrit 39.5 % (36.0-46.0); Hemoglobin 12.9 g/dL (12.2-16.2); Lymphocytes # (auto) 1.2 10 ^3/uL (0.4-5.4); Lymphocytes % (auto) 16.6 % (10.0-50.0); Mean Corpuscular Hemoglobin 28.5 pg (28.0-32.0); Mean Corpuscular Hgb Conc. 32.6 g/dL (32.0-36.0); Mean Corpuscular Volume 87.4 fL (80.0-100.0); Monocytes # (auto) 0.4 10 ^3/uL (0-1.3); Monocytes % (auto) 5.3 % (0.0-12.0); Neutrophils # (auto) 5.5 10 ^3/uL (1.6-8.6); Neutrophils % (auto) 74.6 % (37.0-80.0); Red Blood Cells 4.52 10^6/uL (4.0-5.20); Red Cell Distribution Width 15.1 % (11.8-14.3); White Blood Cell 7.4 10^3/uL (4.4-10.8)
[2021-08-02 09:41] LABS: Albumin 3.4 g/dL (3.4-5.0); Calcium 9.4 mg/dL (8.5-10.1)
[2021-08-02 09:47] LABS: BUN/Creatinine Ratio 15.7; Bilirubin, Total 0.5 mg/dL (0.2-1.0); Total Protein 7.6 g/dL (6.4-8.2)
== END | disposition home or self-care (01) ==
LOC: LAB 08:13
PROVIDERS: ATTEND Nurse Practitioner Family
DX: Z00.00 Encounter for general adult medical examination without abnormal findings (principal); E11.22 Type 2 diabetes mellitus with diabetic chronic kidney disease; I10 Essential (primary) hypertension; E55.9 Vitamin D deficiency, unspecified; E78.5 Hyperlipidemia, unspecified
CPT/HCPCS: 36415; 80053; 80061; 82043; 82306; 83036; 85025

== ENCOUNTER → 2023-02-23 | Outpatient (CLI) | payer BC ==
[2023-02-23 08:49] LABS: Basophils # (auto) 0 10 ^3/uL (0-0.2); Basophils % (auto) 0.4 % (0.0-2.0); Eosinophils # (auto) 0.2 10 ^3/uL (0-0.8); Eosinophils % (auto) 3.5 % (0.0-7.0); Hematocrit 40.4 % (36.0-46.0); Hemoglobin 13.1 g/dL (12.2-16.2); Lymphocytes # (auto) 1.2 10 ^3/uL (0.4-5.4); Lymphocytes % (auto) 19.3 % (10.0-50.0); Mean Corpuscular Hemoglobin 29.1 pg (28.0-32.0); Mean Corpuscular Hgb Conc. 32.6 g/dL (32.0-36.0); Mean Corpuscular Volume 89.5 fL (80.0-100.0); Monocytes # (auto) 0.4 10 ^3/uL (0-1.3); Monocytes % (auto) 5.5 % (0.0-12.0); Neutrophils # (auto) 4.6 10 ^3/uL (1.6-8.6); Neutrophils % (auto) 71.3 % (37.0-80.0); Red Blood Cells 4.51 10^6/uL (4.0-5.20); Red Cell Distribution Width 14.4 % (11.8-14.3); White Blood Cell 6.4 10^3/uL (4.4-10.8)
[2023-02-23 09:28] LABS: Creatinine, Urine 104.16 mg/dL (30.0-125.0)
[2023-02-23 09:33] LABS: Alanine Aminotransferase 19 U/L (7-40); Albumin 4.2 g/dL (3.2-4.8); Alkaline Phosphatase 103 U/L (46-116); Anion Gap 7 (5-15); Aspartate Aminotransferase 9 U/L (13-40); BUN/Creatinine Ratio 12.1 (10.0-20.0); Bilirubin, Total 0.6 mg/dL (0.2-1.0); Blood Urea Nitrogen 15 mg/dL (9-23); Calcium 9.5 mg/dL (8.5-10.1); Carbon Dioxide 25 mmol/L (20-30); Chloride 105 mmol/L (98-107); Cholesterol 199 mg/dL (< 200); Glucose 280 mg/dL (74-106); HDL Cholesterol 44 mg/dL (40-59); LDL Cholesterol 143 mg/dL (< 100); Potassium 4.1 mmol/L (3.5-5.1); Sodium 137 mmol/L (136-145); Triglycerides 103 mg/dL (< 150)
[2023-02-23 09:34] LABS: Total Protein 7.1 g/dL (5.7-8.2)
== END | disposition home or self-care (01) ==
LOC: LAB 08:32
DX: I12.9 Hypertensive chronic kidney disease with stage 1 through stage 4 chronic kidney disease, or unspecified chronic kidney disease (principal); E11.22 Type 2 diabetes mellitus with diabetic chronic kidney disease; N18.9 Chronic kidney disease, unspecified; E78.5 Hyperlipidemia, unspecified; E55.9 Vitamin D deficiency, unspecified
CPT/HCPCS: 36415; 80053; 80061; 82043; 82306; 82570; 83036; 84439; 84443; 85025

== ENCOUNTER → 2023-04-18 | Outpatient (CLI) | payer BC ==
[~2023-04-18] MED LIST changes: +BUPIVACAINE HCL 0.25% P/F 10 ML VIAL ONE; +IOHEXOL 300 MG/ML 100ML BOTTLE IJ ONE; +LIDOCAINE 2%HCL (LOCAL ANESTH.) INJ 10ml MDV ONE
== END | disposition home or self-care (01) ==
LOC: EEVIPCON 10:00 → XYW 10:08
PROVIDERS: ATTEND Orthopaedic Surgery Adult Reconstructive Orthopaedic Surgery
DX: M25.512 Pain in left shoulder (principal); M25.511 Pain in right shoulder
CPT/HCPCS: 20610; 73020; 77002; J2001; J3490; Q9967

== ENCOUNTER → 2024-03-14 | Day surgery (SDC) | payer BC ==
[2024-03-07 09:28] LABS: Basophils # (auto) 0.1 10 ^3/uL (0-0.2); Basophils % (auto) 1.1 % (0.0-2.0); Eosinophils # (auto) 0.2 10 ^3/uL (0-0.8); Eosinophils % (auto) 3.1 % (0.0-7.0); Hematocrit 41.8 % (36.0-46.0); Hemoglobin 13.6 g/dL (12.2-16.2); Lymphocytes # (auto) 1.2 10 ^3/uL (0.4-5.4); Lymphocytes % (auto) 15.6 % (10.0-50.0); Mean Corpuscular Hemoglobin 29.5 pg (28.0-32.0); Mean Corpuscular Hgb Conc. 32.6 g/dL (32.0-36.0); Mean Corpuscular Volume 90.6 fL (80.0-100.0); Monocytes # (auto) 0.5 10 ^3/uL (0-1.3); Monocytes % (auto) 6.7 % (0.0-12.0); Neutrophils # (auto) 5.6 10 ^3/uL (1.6-8.6); Neutrophils % (auto) 73.5 % (37.0-80.0); Nucleated Red Blood Cells % 0.3 %; Platelet Count (auto) 283 10^3/uL (140-450); Red Blood Cells 4.61 10^6/uL (4.0-5.20); Red Cell Distribution Width 14.5 % (11.8-14.3); White Blood Cell 7.6 10^3/uL (4.4-10.8)
[2024-03-07 09:43] LABS: INR 1.03 (0.9-1.15); Partial Thromboplastin Time 25.9 SEC (24.5-34.5); Prothrombin Time 10.9 sec (9.3-11.8)
[2024-03-07 10:05] LABS: Alanine Aminotransferase 17 U/L (7-40); Albumin 4.2 g/dL (3.2-4.8); Alkaline Phosphatase 88 U/L (46-116); Anion Gap 10 (5-15); Aspartate Aminotransferase 17 U/L (13-40); BUN/Creatinine Ratio 17.5 (10.0-20.0); Bilirubin, Total 0.4 mg/dL (0.2-1.0); Blood Urea Nitrogen 28 mg/dL (9-23); Calcium 9.8 mg/dL (8.7-10.4); Carbon Dioxide 25 mmol/L (20-31); Chloride 107 mmol/L (98-107); Glucose 206 mg/dL (74-106); Potassium 4.4 mmol/L (3.5-5.1); Sodium 142 mmol/L (136-145); Total Protein 7.2 g/dL (5.7-8.2)
[~2024-03-14] VITALS: Ht 165.1 cm; Wt 114.8 kg
[~2024-03-14] MED LIST changes: -BUPIVACAINE HCL 0.25% P/F 10 ML VIAL ONE; -CANA100T OR; +GLIP5TAB21 PO; +HYDROmorphone HCL 2 MG/ML VL/or syr IV PRN; -IOHEXOL 300 MG/ML 100ML BOTTLE IJ ONE; -LIDOCAINE 2%HCL (LOCAL ANESTH.) INJ 10ml MDV ONE; +LISI-283 PO; -METF-370 PO; +MIDAZOLAM HCL 2MG/2ML 2ml VIAL (1mg/ml) ONE; +ONDANSETRON HCL 4 MG/2 ML VIAL IV ONE; +PROPOFOL 10 MG/ML 20 ML IV ONE; +SEMA2INJ3 SC
[2024-03-14 09:22] VITALS: RESP 20; TEMP 97.8; O2SAT 93
--- NOTE | 2024-03-14 09:27 | DVHOP2 ---
Operative Report DATE OF OPERATION: 03/14/24 PROCEDURE: Colonoscopy with cold biopsy polypectomy. PREOPERATIVE INDICATION: The patient is a 63 -year-old female undergoing colonoscopy for colon cancer screening POSTOPERATIVE DIAGNOSES: 1. Patient had four diminutive 1-2 mm benign-appearing rectosigmoid polyps that were seen and removed completely via cold biopsy forceps 2. 1+ internal hemorrhoids otherwise essentially completely normal colonoscopy examination up to the terminal ileum and cecum PROCEDURE PERFORMED BY: Santi Mendoza M.D. SCOPE: Olympus videocolonoscope. ASA CLASS: 2. PREOPERATIVE MEDICATIONS: Dr. Jorden Thornton PROCEDURE IN DETAIL: After obtaining an informed consent, the patient was placed on left lateral decubitus position. She was then sedated with the above medications. A rectal examination was performed that was normal. The colonoscope was then passed through the anus into the rectosigmoid and through the descending, transverse, and ascending colon up to the cecum with visualization of the appendiceal orifice, base of the cecum and the ileocecal valve. The colonoscope was then withdrawn. The distal 5-10 cm of the terminal ileum were normal. No masses or colitis were seen. There was no clear-cut diverticular disease. On retroflexion she had 1+ internal hemorrhoids. In the rectosigmoid there were four diminutive benign-appearing polyps. These were removed completely via cold biopsy forceps and the specimens were retrieved The patient tolerated the procedure well without difficulty. WITHDRAWAL TIME: 7 minute QUALITY OF THE PREP: [place] Bowel Prep score: 9. COMPLICATIONS : None SPECIMENS: Rectosigmoid polyps DISPOSITION: Stable D/C to home PLAN: 1. Repeat colonoscopy base on biopsy result likely in five years 2. Resume GI soft diet advance as tolerated 3. Local anorectal hemorrhoidal care 4. Outpatient follow up with me in 4-6 weeks to review results SANTI MENDOZA MD Mar 14, 2024 09:27
[2024-03-14 09:44] VITALS: BP 123/72; PULSE 65; RESP 16; O2SAT 98
== END | disposition home or self-care (01) ==
LOC: GI 08:24
PROVIDERS: ATTEND Internal Medicine Gastroenterology
DX: Z12.11 Encounter for screening for malignant neoplasm of colon (principal); K63.5 Polyp of colon; K64.8 Other hemorrhoids; I12.9 Hypertensive chronic kidney disease with stage 1 through stage 4 chronic kidney disease, or unspecified chronic kidney disease; E11.22 Type 2 diabetes mellitus with diabetic chronic kidney disease; N18.9 Chronic kidney disease, unspecified; E66.9 Obesity, unspecified; Z98.890 Other specified postprocedural states; Z90.49 Acquired absence of other specified parts of digestive tract; Z98.891 History of uterine scar from previous surgery; Z80.8 Family history of malignant neoplasm of other organs or systems
CPT/HCPCS: 36415; 45380; 80053; 85025; 85610; 85730; 88305; J2250; J2704; J7030

== ENCOUNTER → 2024-04-14 | Outpatient (CLI) | payer BC ==
[~2024-04-14] MED LIST changes: -HYDROmorphone HCL 2 MG/ML VL/or syr IV PRN; -MIDAZOLAM HCL 2MG/2ML 2ml VIAL (1mg/ml) ONE; -ONDANSETRON HCL 4 MG/2 ML VIAL IV ONE; -PROPOFOL 10 MG/ML 20 ML IV ONE
[2024-04-14 09:56] LABS: Alanine Aminotransferase 17 U/L (7-40); Albumin 4.3 g/dL (3.2-4.8); Alkaline Phosphatase 86 U/L (46-116); Anion Gap 7 (5-15); Basophils # (auto) 0.1 10 ^3/uL (0-0.2); Basophils % (auto) 0.6 % (0.0-2.0); Calcium 9.9 mg/dL (8.7-10.4); Carbon Dioxide 26 mmol/L (20-31); Chloride 107 mmol/L (98-107); Eosinophils # (auto) 0.3 10 ^3/uL (0-0.8); HDL Cholesterol 42 mg/dL (40-59); Hematocrit 40.2 % (36.0-46.0); Lymphocytes # (auto) 1.5 10 ^3/uL (0.4-5.4); Lymphocytes % (auto) 17.7 % (10.0-50.0); Mean Corpuscular Hemoglobin 29.4 pg (28.0-32.0); Mean Corpuscular Hgb Conc. 32.3 g/dL (32.0-36.0); Mean Corpuscular Volume 90.9 fL (80.0-100.0); Monocytes # (auto) 0.5 10 ^3/uL (0-1.3); Monocytes % (auto) 6.3 % (0.0-12.0); Neutrophils # (auto) 6.1 10 ^3/uL (1.6-8.6); Neutrophils % (auto) 72.4 % (37.0-80.0); Nucleated Red Blood Cells % 0.2 %; Platelet Count (auto) 313 10^3/uL (140-450); Potassium 4.2 mmol/L (3.5-5.1); Red Blood Cells 4.42 10^6/uL (4.0-5.20); Red Cell Distribution Width 14.1 % (11.8-14.3); Sodium 140 mmol/L (136-145); Triglycerides 122 mg/dL (< 150); White Blood Cell 8.4 10^3/uL (4.4-10.8)
[2024-04-14 09:57] LABS: Bilirubin, Total 0.4 mg/dL (0.2-1.0); Total Protein 7.3 g/dL (5.7-8.2)
[2024-04-14 10:02] LABS: Aspartate Aminotransferase 13 U/L (13-40); Blood Urea Nitrogen 29 mg/dL (9-23); Cholesterol 201 mg/dL (< 200); Glucose 202 mg/dL (74-106); LDL Cholesterol 143 mg/dL (< 100)
[2024-04-14 11:02] LABS: Creatinine, Urine 280.45 mg/dL (30.0-125.0)
== END | disposition home or self-care (01) ==
LOC: LAB 08:15
PROVIDERS: ATTEND Nurse Practitioner Family
DX: E11.9 Type 2 diabetes mellitus without complications (principal); E78.5 Hyperlipidemia, unspecified; E66.9 Obesity, unspecified
CPT/HCPCS: 36415; 80053; 80061; 82043; 82306; 82570; 83036; 84443; 85025

== ENCOUNTER → 2024-09-24 | Outpatient (CLI) | payer BC ==
[2024-09-24 08:56] LABS: Basophils # (auto) 0 10 ^3/uL (0-0.2); Basophils % (auto) 0.5 % (0.0-2.0); Eosinophils # (auto) 0.3 10 ^3/uL (0-0.8); Eosinophils % (auto) 4.9 % (0.0-7.0); Hematocrit 40.4 % (36.0-46.0); Hemoglobin 13.4 g/dL (12.2-16.2); Lymphocytes # (auto) 1.4 10 ^3/uL (0.4-5.4); Lymphocytes % (auto) 21.4 % (10.0-50.0); Mean Corpuscular Hemoglobin 29.3 pg (28.0-32.0); Mean Corpuscular Hgb Conc. 33.1 g/dL (32.0-36.0); Mean Corpuscular Volume 88.7 fL (80.0-100.0); Monocytes # (auto) 0.4 10 ^3/uL (0-1.3); Monocytes % (auto) 6.8 % (0.0-12.0); Neutrophils # (auto) 4.3 10 ^3/uL (1.6-8.6); Neutrophils % (auto) 66.4 % (37.0-80.0); Nucleated Red Blood Cells % 0.1 %; Platelet Count (auto) 310 10^3/uL (140-450); Red Blood Cells 4.55 10^6/uL (4.0-5.20); Red Cell Distribution Width 14.7 % (11.8-14.3); White Blood Cell 6.4 10^3/uL (4.4-10.8)
[2024-09-24 09:10] LABS: Urine Bacteria MANY /hpf (None Seen); Urine Blood Negative /uL (Negative); Urine Clarity Clear (Clear); Urine Color Light-Yellow (Yellow); Urine Protein, UAD Negative (Negative); Urine Specific Gravity 1.022 (1.001-1.035); Urine Squamous Epithelial Cell FEW /hpf (<5); Urine Urobilinogen Normal (Negative); Urine WBC 34 /HPF (0-5)
[2024-09-24 09:15] LABS: Alanine Aminotransferase 17 U/L (7-40); Albumin 4.6 g/dL (3.2-4.8); Alkaline Phosphatase 85 U/L (46-116); Anion Gap 9 (5-15); BUN/Creatinine Ratio 19.8 (10.0-20.0); Calcium 9.2 mg/dL (8.7-10.4); Carbon Dioxide 26 mmol/L (20-31); Chloride 106 mmol/L (98-107); Potassium 4.2 mmol/L (3.5-5.1); Sodium 141 mmol/L (136-145); Total Protein 7.6 g/dL (5.7-8.2)
[2024-09-24 09:16] LABS: Aspartate Aminotransferase 12 U/L (13-40); Bilirubin, Total 0.5 mg/dL (0.2-1.0); Blood Urea Nitrogen 32 mg/dL (9-23); Glucose 176 mg/dL (74-106)
[2024-09-24 09:37] LABS: Protein, Urine 22.4 mg/dL (1-14)
[2024-09-24 09:40] LABS: Creatinine, Urine 141.67 mg/dL (30.0-125.0); Creatinine, Urine 143.49 mg/dL (30.0-125.0); Urine Protein/Creatinine Ratio 0.16
== END | disposition home or self-care (01) ==
LOC: LAB 08:18
PROVIDERS: ATTEND Internal Medicine
DX: E11.22 Type 2 diabetes mellitus with diabetic chronic kidney disease (principal); N18.30 Chronic kidney disease, stage 3 unspecified; E11.21 Type 2 diabetes mellitus with diabetic nephropathy; E21.3 Hyperparathyroidism, unspecified; E55.9 Vitamin D deficiency, unspecified; M10.9 Gout, unspecified; N39.0 Urinary tract infection, site not specified; R80.9 Proteinuria, unspecified; D63.1 Anemia in chronic kidney disease
CPT/HCPCS: 36415; 80053; 81001; 82043; 82306; 82570; 83036; 84156; 85025

== ENCOUNTER 2024-10-08 09:31 | Outpatient (CLI) | payer BC | END 2024-10-08 17:00 | disposition home or self-care (01) | LOC: LAB 09:31 | PROVIDERS: ATTEND Internal Medicine | DX: E11.22 Type 2 diabetes mellitus with diabetic chronic kidney disease (principal); N18.30 Chronic kidney disease, stage 3 unspecified; N39.0 Urinary tract infection, site not specified; R80.9 Proteinuria, unspecified; E21.3 Hyperparathyroidism, unspecified; M10.9 Gout, unspecified; E55.9 Vitamin D deficiency, unspecified; D63.1 Anemia in chronic kidney disease | CPT/HCPCS: 87086; 87088; 87186 ==

== ENCOUNTER 2025-01-29 08:10 | Outpatient (CLI) | payer BC ==
[2025-01-29 08:31] LABS: Hematocrit 38.7 % (36.0-46.0); Hemoglobin 13.1 g/dL (12.2-16.2); Mean Corpuscular Hemoglobin 30.2 pg (28.0-32.0); Mean Corpuscular Volume 89.2 fL (80.0-100.0); Nucleated Red Blood Cells % 0.1 %
[2025-01-29 08:32] LABS: Urine Protein, UAD Negative (Negative)
[2025-01-29 08:59] LABS: Protein, Urine 28.2 mg/dL (1-14)
[2025-01-29 09:02] LABS: Alanine Aminotransferase 20 U/L (7-40); Alkaline Phosphatase 90 U/L (46-116); Anion Gap 11 (5-15); BUN/Creatinine Ratio 18.6 (10.0-20.0); Calcium 9.0 mg/dL (8.7-10.4); Carbon Dioxide 23 mmol/L (20-31); Chloride 105 mmol/L (98-107); Potassium 4.3 mmol/L (3.5-5.1); Sodium 139 mmol/L (136-145); Total Protein 7.2 g/dL (5.7-8.2); Triglycerides 109 mg/dL (< 150)
[2025-01-29 09:03] LABS: Albumin 4.2 g/dL (3.2-4.8); Bilirubin, Total 0.6 mg/dL (0.2-1.0); Cholesterol 197 mg/dL (< 200); HDL Cholesterol 45 mg/dL (40-59)
[2025-01-29 09:04] LABS: Microalb/Creat Ratio, Urine 7.0
[2025-01-29 09:11] LABS: Blood Urea Nitrogen 26 mg/dL (9-23); Glucose 223 mg/dL (74-106)
[2025-01-29 10:31] LABS: Uric Acid 8.0 mg/dL (3.1-7.8)
== END 2025-01-29 17:00 | disposition home or self-care (01) ==
LOC: LAB 08:10
PROVIDERS: ATTEND Nurse Practitioner Family
DX: E11.22 Type 2 diabetes mellitus with diabetic chronic kidney disease (principal); N18.30 Chronic kidney disease, stage 3 unspecified; E11.21 Type 2 diabetes mellitus with diabetic nephropathy; E11.65 Type 2 diabetes mellitus with hyperglycemia; E66.9 Obesity, unspecified; E21.3 Hyperparathyroidism, unspecified; E55.9 Vitamin D deficiency, unspecified; N39.0 Urinary tract infection, site not specified; D63.1 Anemia in chronic kidney disease; M10.9 Gout, unspecified; R80.9 Proteinuria, unspecified; Z00.01 Encounter for general adult medical examination with abnormal findings
CPT/HCPCS: 36415; 80053; 80061; 80069; 81001; 82043; 82306; 82570; 83036; 83970; 84156; 84443; 84550; 85025